=== PATIENT | female | born 1995 | race American Indian/Alaskan Native ===

== ENCOUNTER 2020-10-04 06:20 | Emergency (ER) | payer SELFPAY ==
[2020-10-04 06:27] VITALS: BP 130/77
[2020-10-04] MEDS ORDERED: HYDROcodone/ACETAMINOPHEN 5-325 MG TAB PO ONE (07:30)
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
[2020-10-04] MEDS ORDERED: LIDOCAINE (1%) 10 MG/1 ML VIAL 20 ML MDV INFILTRATI ONE (08:32)
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
[2020-10-04] MEDS ORDERED: ALBUTEROL 2.5 MG/3 ML NEBU IH ONE (08:40)
[2020-10-04] MEDS ORDERED: IPRATROPIUM 0.02% NEBU 2.5 ML IH ONE (08:40)
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
[2020-10-04] MEDS ORDERED: KETOROLAC 60 MG/2 ML INJ IM ONE (09:00)
== END 2020-10-04 10:14 | disposition home or self-care (01) ==
LOC: ED 06:20
DX: S01.511A Laceration without foreign body of lip, initial encounter (principal); S01.512A Laceration without foreign body of oral cavity, initial encounter; S16.1XXA Strain of muscle, fascia and tendon at neck level, initial encounter; S46.911A Strain of unspecified muscle, fascia and tendon at shoulder and upper arm level, right arm, initial encounter; S80.02XA Contusion of left knee, initial encounter; F17.200 Nicotine dependence, unspecified, uncomplicated; Z79.899 Other long term (current) drug therapy; V49.49XA Driver injured in collision with other motor vehicles in traffic accident, initial encounter; Y92.410 Unspecified street and highway as the place of occurrence of the external cause; Y93.89 Activity, other specified; Y99.8 Other external cause status
CPT/HCPCS: 70450; 70486; 72125